=== PATIENT | male | born 1970 | race Caucasian/White ===

== ENCOUNTER 2016-12-17 13:32 | Emergency (ER) | payer OTHER ==
[~2016-12-17] VITALS: Ht 160 cm; Wt 70.0 kg
[2016-12-17 13:35] VITALS: Ht 160 cm; Wt 70.0 kg
[2016-12-17] MEDS ORDERED: LORATADINE 10 MG TAB PO ONE (16:00)
--- NOTE | 2016-12-17 16:25 | ERD ---
ER Documentation Chief Complaint Date/Time DATE: 12/17/16 TIME: 16:22 Chief Complaint left possible fb HPI This 46-year-old male patient presents to emergency department with foreign body in left eye. Patient was sharpening a blade multiple shards of metal went into I. Patient was not wearing protective eyewear,, pt stated the he was able to remove some of the FB with a small magnet, patient denies change in vision, symptoms started a week ago. reports scratching sensation. and tearing . ROS All systems reviewed and are negative except as per history of present illness. Medications Home Meds Active Scripts Gentamicin Sulfate* (Gentafair* Ophth) 0.3% - 5 Ml Drops, 2 DROP LEFT EYE Q4 for 7 Days, EA Prov:ZAK VALERIOODY 12/17/16 Allergies Allergies: Coded Allergies: No Known Allergy (Unverified , 12/17/16) Physical Exam Vitals Vital Signs Date Time Temp Pulse Resp B/P Pulse Ox O2 Delivery O2 Flow Rate FiO2 12/17/16 18:06 98.2 72 19 127/77 100 Room Air 12/17/16 13:35 98.2 84 18 120/85 99 Vitals stable, triage notes reviewed Physical Exam Const: Well-nourished well-appearing well-hydrated male patient no acute distress Head: Atraumatic Eyes: Normal Conjunctiva small foreign body visual without magnification left eye at 1700 margin of virus and conjunctiva Eye Exam: Visual Acuity: Right eye 5070, left eye 5070, both eyes 5070 without corrective lenses Visual Miner: Intact in all four quadrants bilaterally Lac ducts/glands: No swelling Lids w/ evertion: Normal, no foreign body Conj/Boutte: Clear, negative Fluorescein/Kassidy's ENT: Normal External Ears, Nose and Mouth. Neck: Resp: Cardio: Abd: Skin: Back: Ext: Neur: Awake and alert Psych: Normal Mood and Affect Results 24 hrs Current Medications Medications (Trade) Dose Ordered Sig/Gela Route PRN Reason Start Time Stop Time Status Last Admin Dose Admin Loratadine (Claritin) 10 mg ONCE ONCE PO 12/17/16 16:00 12/17/16 16:01 DC 12/17/16 17:52 Tetracaine HCl (Tetracaine 0.5% Steri-Unit Asha) 1 drop ONCE ONCE LEFT EYE 12/17/16 16:30 12/17/16 16:31 DC Fluorescein Sodium (Jrhab-H-Uchda) 1 strip ONCE ONCE LEFT EYE 12/17/16 16:30 12/17/16 16:31 DC Diphtheria/ Tetanus/Acell Pertussis (Adacel) 0.5 ml ONCE ONCE IM* 12/17/16 16:30 10 16:31 DC 12/17/16 17:49 Procedures/MDM This pleasant 46-year-old male patient presents to emergency department for foreign body in left eye. Patient reports he was using a knife setter grinder machine on a knife to sharp and it had metal splinters go into left eye. Patient states he was able to remove some of them with a small magnet patient states that injury occurred 5 days ago. Foreign body visible at 1700 iris and conjunctiva border. Foreign body removed by myself with cotton swab and needle. This case discussed with supervising physician Dr. Kerns, patient discharged home with gentamicin 2 drops every 4 hours left eye 7 days follow-up with ophthalmology, contact list was provided. Return to emergency department for increased swelling, pain, change in vision. Patient is stable with no new complaints during ER course, clinically there is no current evidence to suggest peritonitis, Jean Baptiste-Stuart syndrome, corneal or any other emergent condition appearing to require further evaluation or hospitalization. I feel the patient is stable for discharge at this time. I have discussed results, examination findings, the treatment plan with the patient and family present prior to discharge. Indications for emergent reevaluation, side effects of medication were also discussed. All questions were answered. Patient verbalizes understanding and agrees with plan of care. Departure Diagnosis: Primary Impression: Foreign body in eye Encounter type: initial encounter Laterality: left Qualified Code: T15.92XA - Foreign body of left eye, initial encounter Condition: Good Patient Instructions: Corneal Foreign Body, Removed Referrals: [facility] Additional Instructions: Thank you for for coming to the [facility] for your care today. Please ask your nurse or provider if you have questions about your care today and do not leave until all your questions have been answered. Please use any medications given as directed and follow-up with your doctor (or the doctor you were referred to) in the next 2-3 days. If you do not have a primary care doctor you may follow up at the [facility] (listed below). You may also use motrin and tylenol as needed for fever and/or pain unless instructed otherwise by your provider or nurse. Indications for more urgent follow-up have been discussed, but you may return to the Emergency Department at ANY time for any worrisome or worsening symptoms. If you have abdominal pain, please know that no test or exam you received is perfect and you should follow up within 8 hours for continued pain. If you had any imaging studies today, such as an X-Ray or CT Scan, these studies will be reviewed later by a radiologist. You will be called if there are important findings that were not identified today, so make sure the contact information you provided at registration is correct. If you received any narcotic pain control medicine today, such as Vicodin, Morphine or Dilaudid, your coordination and judgment may be affected for a number of hours. Please do not drive or operate heavy machinery, and you may want someone to assist you at home. If you were given a prescription for narcotic medication, be aware that it is very addictive- use sparingly and only if necessary. [place] VALERIO Dec 17, 2016 16:25
[2016-12-17] MEDS ORDERED: TETRACAINE 0.5% 4 ML OPH LEFT EYE ONE (16:30)
[2016-12-17] MEDS ORDERED: FLUORESCEIN STRIP LEFT EYE ONE (16:30)
[2016-12-17] MEDS ORDERED: DIPHTH/TET/ACEL PERTUSS (ADULT) 0.5 ML VIAL IM* ONE (16:30)
[2016-12-17] MEDS ORDERED: GENT5DRO28 LEFT EYE (17:53)
[2016-12-17 18:06] VITALS: BP 127/77; PULSE 72; RESP 19; TEMP 98.2
== END 2016-12-17 18:06 | disposition home or self-care (01) ==
LOC: FTE 13:32
DX: T15.92XA Foreign body on external eye, part unspecified, left eye, initial encounter (principal); W26.8XXA Contact with other sharp object(s), not elsewhere classified, initial encounter; Y92.9 Unspecified place or not applicable; Z23 Encounter for immunization
CPT/HCPCS: 90471; 90715